=== PATIENT | male | born 1990 | race Caucasian/White ===

== ENCOUNTER 2022-01-30 15:18 | Outpatient (CLI) | payer OTHER, SELFPAY | END 2022-01-30 15:19 | disposition home or self-care (01) | LOC: LBO 15:19 | PROVIDERS: Visit Provider Nurse Practitioner Family ==

== ENCOUNTER 2022-02-04 18:18 | Outpatient (CLI) | payer OTHER, SELFPAY ==
[2022-02-07 12:08] LABS: Hepatitis C Ab w Rflx HCV PCR Reactive (Negative)
[2022-02-09 12:11] LABS: HCV RNA Detection Quantitative 2630000 IU/mL (Undetected); HCV RNA Qualitative Detected (Undetected)
== END 2022-02-04 18:19 | disposition home or self-care (01) ==
LOC: LBO 18:20
PROVIDERS: Visit Provider Emergency Medicine
DX: B19.20 Unspecified viral hepatitis C without hepatic coma (principal)
CPT/HCPCS: 36415; 86803; 87522

== ENCOUNTER 2022-03-04 02:25 | Outpatient (CLI) | payer OTHER, SELFPAY | END 2022-03-04 02:26 | disposition home or self-care (01) | LOC: LBO 02:25 | PROVIDERS: Visit Provider Emergency Medicine ==